=== PATIENT | female | born 1995 | race Caucasian/White ===

== ENCOUNTER 2017-09-11 02:28 | Emergency (ER) | payer OTHER ==
[~2017-09-11] VITALS: Ht 165.1 cm; Wt 55.0 kg
[2017-09-11 02:34] VITALS: BP 113/60; PULSE 66; RESP 18; TEMP 98.1; O2SAT 99
[2017-09-11] MEDS ORDERED: LIDOCAINE HCL 1% 50 ML VIAL INFIL ONE (07:30)
[2017-09-11] MEDS ORDERED: TETANUS/DIPHTHERIA TOXOID ADULT 0.5 ML VIAL IM ONE (07:30)
--- NOTE | 2017-09-11 07:31 | PD ---
HPI Chief Complaint: Laceration/Skin Injury Time Seen by Provider: 07:27 Travel History International Travel<30 days: No Contact w/Intl Traveler<30days: No Traveled to known affect area: No History of Present Illness HPI 22-year-old female patient presents to the ER today, states that she was at a friend's constitution party, stepped on something sharp and has a laceration to the bottom of her left foot. She had assumed it was glass but does not know exactly when she cut it on. She denies any other issues or injuries. Modifying Factors: None Associated Signs & Symptoms: Injury to the left foot Risk Factors: None PFSH Past Medical History Medical History: Denies Significant Hx ?: Not LMP: "ON CONTROL, DONT HAVE ONE" Past Surgical History Surgical History: No Previous Surgery Social History Alcohol Use: Yes ("OCC") Tobacco Use: Yes ("ONLY WITHIN THE PAST WK") Substance Use: Yes ("MARIJUANA") Allergies-Medications (Allergen,Severity, Reaction): Coded Allergies: hydrocodone (Unverified Adverse Reaction, Severe, Hives, 09/11/17) Reported Meds & Prescriptions Reported Meds & Active Scripts Active No Active Prescriptions or Reported Medications Review of Systems Except as stated in HPI: all other systems reviewed are Neg Physical Exam Narrative GENERAL: Well-nourished, well-developed young female patient in mild distress. Awake and oriented 3. SKIN: Focused skin assessment warm/dry. There is a 3 cm linear laceration to the left heel, no obvious foreign body identified. HEAD: Normocephalic. EYES: No scleral icterus. No injection or drainage. NECK: Supple, trachea midline. No JVD or lymphadenopathy. CARDIOVASCULAR: Regular rate and rhythm without murmurs, gallops, or rubs. RESPIRATORY: Breath sounds equal bilaterally. No accessory muscle use. GASTROINTESTINAL: Abdomen soft, non-tender, nondistended. MUSCULOSKELETAL: No cyanosis, or edema. BACK: Nontender without obvious deformity. No CVA tenderness. Data Data Last Documented VS Vital Signs Date Time Temp Pulse Resp B/P (MAP) Pulse Ox O2 Delivery O2 Flow Rate FiO2 09/11/17 02:34 98.1 66 18 113/60 (77) 99 Orders Orders Foot, Limited (2vws) (09/11/17 07:27) Tetanus/Diphtheria Tox Adult (Tetanus/Di (09/11/17 07:30) Lidocaine 1% Inj (50 Ml) (Xylocaine 1% I (09/11/17 07:30) Lidocaine Pf 1% Inj (Xylocaine-Mpf 1% In (09/11/17 07:57) Ed Discharge Order (09/11/17 08:24) MDM Medical Decision Making Medical Screen Exam Complete: Yes Emergency Medical Condition: Yes Medical Record Reviewed: Yes Differential Diagnosis Left heel injury/laceration Narrative Course Laceration sutured in the ER by me. Tetanus shot given. Wound care instructions given. Suture removal in 12 days. Return for any worsening in pain, signs of infection and as needed. X-ray did not show any signs of foreign bodies. Plan was discussed with the patient and she states understanding. Procedures Procedure Narrative LACERATION LOCATION: Left heel LENGTH: 3 cm NUMBER OF STITCHES/JACQUES: 7 REPAIR: The area of the laceration was prepped with Betadine and sterilely draped. The laceration was infiltrated with 3 cc of 1% lidocaine. The wound was copiously irrigated and explored without evidence of foreign body, tendon injury or neurovascular injury. The wound was closed using four-point 0 nylon. This was a single layer repair. A sterile dressing was applied. The patient was advised to keep the dressing clean and dry. Patient tolerated the procedure well. Diagnosis Primary Impression: Laceration of heel Scripts No Active Prescriptions or Reported Meds Disposition: 01 DISCHARGE HOME Condition: Stable SoonLenore navarro MD Sep 11, 2017 07:31
--- NOTE | 2017-09-11 07:53 | RADRPT ---
EXAM DATE/TIME: 09/11/2017 07:39 [facility] COMPARISON: No previous studies available for comparison. INDICATIONS : Evaluate foot for foreign body, laceration posterior heel MEDICAL HISTORY : None. SURGICAL HISTORY : None. ENCOUNTER: Initial ACUITY: 1 day PAIN SCORE: 1/10 LOCATION: Left Foot FINDINGS: Two view examination of the left foot demonstrates no soft tissue swelling, dislocation, or fracture. The calcaneus is intact. Bony mineralization is normal. There is no evidence of radiopaque foreign body. CONCLUSION: 1. No evidence of radiopaque foreign body. 2. No evidence of acute bony injury Ian Delgado MD on September 11, 2017 at 7:51 Board Certified Radiologist. This report was verified electronically.
[2017-09-11] MEDS ORDERED: LIDOCAINE HCL 1% PF 30 ML VIAL ONE (07:57)
== END 2017-09-11 08:50 | disposition home or self-care (01) ==
LOC: NEPC 02:28
DX: S91.312A Laceration without foreign body, left foot, initial encounter (principal); W45.8XXA Other foreign body or object entering through skin, initial encounter; Z72.0 Tobacco use; F12.90 Cannabis use, unspecified, uncomplicated; Z23 Encounter for immunization
CPT/HCPCS: 12002; 73620; 90471; 90714